=== PATIENT | male | born 1960 | race Caucasian/White ===

== ENCOUNTER 2016-12-15 07:28 | Inpatient (IN) | payer BC ==
[~2016-12-15] VITALS: Ht 182.9 cm; Wt 127.0 kg
--- NOTE | ~2016-12-15 | OP ---
Record Of Operation [facility] [address] [place] [address] NAME: ALTAGRACIA ORTIZ : 60 STATUS : ADM IN [facility]#: [id number] AGE: 56 ADM/REG DATE : 12/15/16 MR#: [id number] REPORT SERV DATE: 12/16/16 DICTATED BY: REGAN HERRERA SAMUEL O. DATE: 12/16/16 REPORT STATUS : Draft TRANSCRIBED BY: ENRICO DATE: 12/16/16 DATE OF PROCEDURE: CARDIOVERSION REASON FOR PROCEDURE: Atrial fibrillation. PROCEDURE: After informed written consent was obtained, the patient was prepped for the procedure. The risks and benefits had been explained to the patient. Pads were placed in the AP position. The patient was appropriately anesthetized with Anesthesia Service using propofol. Please see their report for details of that. The patient was continually monitored using nasal capnography, telemetry monitoring, and intermittent blood pressure monitoring. Using 200 joules synchronized cardioversion, the patient was then cardioverted successfully to sinus rhythm. Blood pressure monitoring and ECG rhythm performed immediately post procedure. The patient tolerated the procedure well. CONCLUSION: Successful cardioversion of atrial fibrillation to sinus rhythm. PLAN: The patient will be monitored and we will continue his Tikosyn loading. SOJ/ENRICO Rafael Herrera MD / [id number] CC: Rafael Herrera MD
[~2016-12-15 07:28] MED LIST: ATEN25 PO; HYZAAR 100/25 T1 TAB PO; KLOR-CON M1010 MEQ PO; LEVOTHYROXIN50 MCG PO; XARELTO20 MG PO
[2016-12-15 08:37] LABS: BASOPHILS 0.6 %; BASOPHILS ABSOLUTE 0.03 10/3/uL (0.0-0.16); EOSINOPHILS 6.4 %; EOSINOPHILS ABSOLUTE 0.31 10/3/uL (0.0-0.53); HEMATOCRIT 44.7 % (40.0-51.0); HEMOGLOBIN 14.9 g/dL (13.6-17.8); IMMATURE GRANULOCYTES 0.4 %; IMMATURE GRANULOCYTES ABSOLUTE 0.02 10/3/uL (0.0-0.11); LYMPHOCYTES ABSOLUTE 1.51 10/3/uL (0.67-4.30); MEAN CORPUS HGB CONC 33.3 g/dL (32.0-36.0); MEAN CORPUSCULAR HEMOGLOB 29.5 pg (26.0-34.0); MEAN CORPUSCULAR VOLUME 88.5 fL (80-100); MEAN PLATELET VOLUME 9.7 fL (9.2-13.0); MONOCYTES 8.4 %; MONOCYTES ABSOLUTE 0.41 10/3/uL (0.21-1.20); NEUTROPHILS 53.2 %; NEUTROPHILS ABSOLUTE 2.59 10/3/uL (2.02-8.40); PLATELET COUNT 194 10/3/uL (150-400); RBC DISTRIBUTION WIDTH 13.5 % (12.0-16.0); RED CELL COUNT 5.05 10/6/uL (4.7-6.1); WHITE BLOOD CELLS 4.9 10/3/uL (4.5-10.5)
[2016-12-15 08:42] LABS: MANUAL DIFF NO %
[2016-12-15 08:44] LABS: CALCIUM, SERUM 8.2 MG/DL (8.5-10.4); CHLORIDE, SERUM 108 MMOL/L (96-112); CO2 (CARBON DIOXIDE) 28 MMOL/L (24-34); CREATININE 1.08 MG/DL (0.70-1.30); GFR AFRICAN AMERICAN 88 ML/MIN (>=60); GFR NON AFRICAN AMERICAN 76 ML/MIN (>=60); POTASSIUM, SERUM 3.3 MMOL/L (3.5-5.3); SODIUM, SERUM 144 MMOL/L (135-148)
[2016-12-15 08:45] LABS: BUN (BLOOD UREA NITROGEN) 15 MG/DL (6-23); GLUCOSE, SERUM 124 MG/DL (60-99)
[2016-12-16 05:02] LABS: BUN (BLOOD UREA NITROGEN) 11 MG/DL (6-23); CALCIUM, SERUM 8.8 MG/DL (8.5-10.4); CHLORIDE, SERUM 106 MMOL/L (96-112); CO2 (CARBON DIOXIDE) 28 MMOL/L (24-34); CREATININE 0.93 MG/DL (0.70-1.30); GFR AFRICAN AMERICAN 106 ML/MIN (>=60); GFR NON AFRICAN AMERICAN 91 ML/MIN (>=60); GLUCOSE, SERUM 92 MG/DL (60-99); POTASSIUM, SERUM 3.6 MMOL/L (3.5-5.3); SODIUM, SERUM 140 MMOL/L (135-148)
[2016-12-17 05:01] LABS: BUN (BLOOD UREA NITROGEN) 17 MG/DL (6-23); CALCIUM, SERUM 8.8 MG/DL (8.5-10.4); CHLORIDE, SERUM 106 MMOL/L (96-112); CO2 (CARBON DIOXIDE) 28 MMOL/L (24-34); CREATININE 1.31 MG/DL (0.70-1.30); GFR AFRICAN AMERICAN 70 ML/MIN (>=60); GFR NON AFRICAN AMERICAN 60 ML/MIN (>=60); GLUCOSE, SERUM 115 MG/DL (60-99); POTASSIUM, SERUM 3.5 MMOL/L (3.5-5.3); SODIUM, SERUM 141 MMOL/L (135-148)
[2016-12-17] MEDS ORDERED: TOPXL25 PO (14:47)
[2016-12-17] MEDS ORDERED: TIKOSYN250 MCG PO ×2 (14:48→14:49)
[2016-12-17] MEDS ORDERED: KDUR20 PO (14:49)
[2016-12-17] MEDS ORDERED: EXFORGE1 TA1 PO (16:46)
== END 2016-12-17 20:05 | disposition home or self-care (01) | DRG 309 ==
LOC: ENRESERV → CANRESERV → ENRESERVDT → ENRESERVTM → SSU1 07:28
PROVIDERS: Internal Medicine Clinical Cardiac Electrophysiology
PROC: 5A2204Z Restoration of Cardiac Rhythm, Single (ICD-10-PCS; principal; 2016-12-16)
DX: I48.1 Persistent atrial fibrillation (principal); I50.22 Chronic systolic (congestive) heart failure; I11.0 Hypertensive heart disease with heart failure; G47.33 Obstructive sleep apnea (adult) (pediatric); Z79.01 Long term (current) use of anticoagulants; Z79.899 Other long term (current) drug therapy
CPT/HCPCS: 80048; 83735; 84132; 85025; 92960; 93005; A9270-GY